=== PATIENT | male | born 1990 | race Caucasian/White ===

== ENCOUNTER 2021-09-25 18:41 | Emergency (ER) | payer OTHER ==
[~2021-09-25] VITALS: Ht 180.3 cm; Wt 104.3 kg
[~2021-09-25 18:41] MED LIST: ANTACID400 MG PO; HYDROCODONE-AP1 EAC6 PO; PEPCID20 MG PO; SENNA-S TABLET1 EACH PO; ULTRAM 50MG TAB50 MG PO
[2021-09-25] MEDS ORDERED: AMOXICILLIN 50500 MG PO (19:37)
[2021-09-25 20:43] VITALS: BP 146/78
== END 2021-09-25 20:43 | disposition home or self-care (01) ==
LOC: ER 18:41
DX: K08.89 Other specified disorders of teeth and supporting structures (principal); F17.210 Nicotine dependence, cigarettes, uncomplicated; Z88.5 Allergy status to narcotic agent; Z79.899 Other long term (current) drug therapy